=== PATIENT | female | born 1945 | race Caucasian/White ===

== ENCOUNTER 2022-11-06 05:47 | Day surgery (SDC) | payer OTHER ==
[~2022-11-06] VITALS: Ht 152.4 cm; Wt 70.3 kg
[~2022-11-06 05:47] MED LIST: ALENDRONATE SOD70 MG PO; AMLODIP PO; CALTRAT PO; COZAAR50 MG PO; HYDROCH PO; TIROSINT88 MCG PO; VITAMIN D3 PO
== END 2022-11-06 15:55 | disposition home or self-care (01) ==
LOC: CIR.AMB 05:47
PROVIDERS: ATTEND Surgery
DX: D05.11 Intraductal carcinoma in situ of right breast (principal); R59.0 Localized enlarged lymph nodes; Z20.822 Contact with and (suspected) exposure to COVID-19; I10 Essential (primary) hypertension; D64.9 Anemia, unspecified; E78.2 Mixed hyperlipidemia
CPT/HCPCS: 19301; 38525; 38792; 19281; A9541; L8699